=== PATIENT | male | born 1980 | race Caucasian/White ===

== ENCOUNTER 2018-05-09 17:25 | Emergency (ER) | payer OTHER ==
[~2018-05-09] VITALS: Ht 180.3 cm; Wt 77.1 kg
[2018-05-11] MEDS ORDERED: ADVAIR 100-501 EACH (02:30)
== END 2018-05-09 20:25 | disposition home or self-care (01) ==
LOC: ER 17:25
DX: S51.012A Laceration without foreign body of left elbow, initial encounter (principal); W45.8XXA Other foreign body or object entering through skin, initial encounter; Y93.89 Activity, other specified; Y92.89 Other specified places as the place of occurrence of the external cause; Y99.8 Other external cause status

== ENCOUNTER → 2018-05-11 | Emergency (ER) | payer OTHER ==
[~2018-05-11] VITALS: Ht 180.3 cm; Wt 77.1 kg
[~2018-05-11] MED LIST: ADVAIR 100-501 EACH
== END | disposition home or self-care (01) ==
LOC: ER 02:21
DX: T81.33XD Disruption of traumatic injury wound repair, subsequent encounter (principal)

== ENCOUNTER 2018-05-17 13:37 | Emergency (ER) | payer OTHER ==
[~2018-05-17] VITALS: Ht 180.3 cm; Wt 72.6 kg
== END 2018-05-17 16:19 | disposition home or self-care (01) ==
LOC: ER 13:37
DX: Z48.02 Encounter for removal of sutures (principal)